=== PATIENT | female | born 1965 | race Caucasian/White ===

== ENCOUNTER 2023-11-03 08:53 | Day surgery (SDC) | payer OTHER ==
[2023-11-03] MEDS ORDERED: Propofol 200 MG/20 ML SDV ONE (09:53)
[2023-11-03] MEDS ORDERED: Midazolam 1 MG/ML 2 ML SDV ONE (09:53)
[2023-11-03] MEDS ORDERED: fentaNYL 50 MCG/ML SDV ONE (09:53)
[2023-11-03] MEDS: Sodium Chloride 0.9% 1,000 ML IV SCH (09:59)
== END 2023-11-03 12:29 | disposition home or self-care (01) ==
LOC: JP.SDS 08:53
PROVIDERS: ATTEND Surgery
DX: Z12.11 Encounter for screening for malignant neoplasm of colon (principal); D12.5 Benign neoplasm of sigmoid colon; K57.30 Diverticulosis of large intestine without perforation or abscess without bleeding
CPT/HCPCS: 00811; 45385; J2250; J2704; J3010; J7030

== ENCOUNTER 2025-02-17 16:39 | Emergency (ER) | payer OTHER | END 2025-02-17 19:30 | disposition home or self-care (01) | LOC: JP.ED 16:39 | DX: Z77.21 Contact with and (suspected) exposure to potentially hazardous body fluids (principal); W46.0XXA Contact with hypodermic needle, initial encounter; Z88.6 Allergy status to analgesic agent; Z79.899 Other long term (current) drug therapy | CPT/HCPCS: 80074; 86706; 87350; 87449; 99283 ==